=== PATIENT | male | born 1985 | race Caucasian/White ===

== ENCOUNTER 2017-01-31 13:01 | Emergency (ER) | payer OTHER ==
--- NOTE | 2017-01-31 13:32 | ED CLINICAL REPORT ---
Clinical Report - Physicians/Mid Levels [facility] [address] [place] [address] 01/31/2017 13:05 Patient: BRIONNA ROMO Time Seen: 13:13; initial patient contact. Arrived- By private vehicle. Historian- patient. HISTORY OF PRESENT ILLNESS Chief Complaint: EYE REDNESS and IRRITATION. This started about 2 days ago, involves the left eye and is characterized as mild. Eye discomfort, redness, irritation, discharge and matting. Eye itching. Photophobia. No blurred vision, double vision, decreased vision or loss of vision. REVIEW OF SYSTEMS No fever, sore throat or cough. All systems otherwise negative, except as recorded above. PAST HISTORY Dental Abscess. Dental Pain. Hydrocele [RuleOut]. Epididymitis [RuleOut]. ADDITIONAL SURGERIES: Hydrocilectomy Lt Side. Tonsillectomy. ADDITIONAL NOTES The nursing notes have been reviewed. PHYSICAL EXAM Vital Signs: 01/31/2017 13:11 BP: 134/91. HR: 104. RR: 17. O2 saturation: 100%. Temp: 98.2 F. Pain level now: 8/10. Have been reviewed. Hypertensive. Tachycardic. Respiratory rate normal. Temperature normal. Oxygen saturation normal. Appearance: Alert. Oriented X3. No acute distress. Eyes: Pupils equal, round and reactive to light. Accommodation normal. EOMs intact. Rt Eye: Right eye exam normal. Lt Eye: Injected conjunctiva. Moderate exudate present. No eyelid edema or erythema, subconjunctival hemorrhage or conjunctival foreign body. No injury to the conjunctiva or sclera. No stye present. No foreign body under the eyelid. No injury to the eyelids. Neck: No lymphadenopathy. Skin: No rash. Neuro: Oriented X 3. PROGRESS AND PROCEDURES Disposition: Discharged home in good and improved condition. Condition: good. CLINICAL IMPRESSION Acute mucopurulent and bacterial conjunctivitis of the left eye. INSTRUCTIONS Your Current Medications: CONTINUE TAKING THE FOLLOWING MEDICATIONS: None*. Prescription Medications: Polytrim ophthalmic solution: instill 1 drop into the affected eye every 3 hours while awake until symptoms resolve. Dispense ten (10) mL. No refill. Substitution is permissible. Follow-up: Follow up with your doctor if not better. Call for an appointment. Screening today revealed the patient's blood pressure to be in the hypertensive range. The patient should follow up with a primary care provider for blood pressure management. (Electronically signed by Yaakov Bailey Dr. 01/31/2017 13:35)
--- NOTE | 2017-01-31 13:32 | ED NURSING NOTES ---
Clinical Report - Nurses [facility] [address] [place] [address] 01/31/2017 13:05 Patient: BRIONNA ROMO TRIAGE Triage time 13:Jan 31 2017. Acuity: LEVEL 4. Chief Complaint: REDNESS and PAIN TO LEFT EYE. BURNING, MATTING and DRAINAGE TO LEFT EYE. (pt reports 3 days of left eye pain, redness and "it's been stuck shut 2 mornings in a row now"). Alert. No acute distress. --13:15 Quique Daniels R.N. 13:11 01/31/17. BP: 134/91. HR: 104. RR: 17. O2 saturation: 100%. Temp: 98.2 F. Pain level now: 04/22. --13:15 Quique Daniels R.N. Weight: 238.1 kg stated. Height/Length: 73 inches Per Patient. BMI: 69.3. --13:14 Quique Daniels R.N. Medications None. --13:13 Quique Daniels R.N. Medication/allergy information source: the patient. --13:15 Quique Daniels R.N. Allergies None. --13:13 Quique Daniels R.N. History Arrived by private vehicle. Historian: patient. The patient did not sustain an injury. 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 PAST MEDICAL HX: Immunizations: up-to-date. SOCIAL HX: Heavy tobacco smoker (cigarette)- less than 1 pack per day. No alcohol use or drug use. No infectious disease exposure. ABUSE ASSESSMENT: No report of abuse. SELF HARM ASSESSMENT: A self harm assessment was performed. The patient answered "no" to the question "Do you have thoughts of harming or killing yourself?". Bedside precautions. --13:15 Quique Daniels R.N. PROBLEMS: Dental Abscess. Dental Pain. --13:13 Quique Daniels R.N. Hydrocele [RuleOut]. Epididymitis [RuleOut]. --13:13 Quique Daniels R.N. ADDITIONAL SURGERIES: Hydrocilectomy Lt Side. Tonsillectomy. --13:13 Quique Daniels R.N. Interventions ID band on patient. --13:15 Quique Daniels R.N. PHYSICAL ASSESSMENT Ambulatory to room. GENERAL / NEURO / PSYCH: Alert. Appears in pain. HEENT: No facial asymmetry noted. Pupils equal, round and reactive to light. Conjunctival findings present: redness of the left conjunctiva and exudate present in the left eye. RESPIRATORY: Respirations not labored. CVS: Capillary refill less than 2 seconds. SKIN: Skin is warm and dry. Normal skin turgor. --13:16 Quique Daniels R.N. NURSING PROGRESS NOTES Reassurance given. Patient identifiers checked. Call light placed in reach. Side rails up x 1. Bed placed in lowest position. Brakes of bed on. Patient waiting for evaluation. --13:16 Quique Daniels R.N. DISPOSITION / DISCHARGE Departure time: 1343. Condition at departure: unchanged. No learning barriers present. Discharge instructions provided and reviewed with the patient. Reviewed medication(s) precautions, dosing and course information. Prescription(s) given to the patient. Patient verbalized understanding. Written instructions provided in [place]. The patient was discharged by the physician. He was discharged home. He left the Emergency Department ambulatory and via private vehicle. Patient driving. ( pt enc to maintain excellent handwashing and to how contagious conjunctivitis is, as well as how it is transferred.). --13:46 Quique Daniels R.N. 13:44 01/31/17. BP: 128/92. HR: 102. RR: 17. O2 saturation: 97%. Temp: 98.1 F. Pain level now: 10. --13:46 Quique Daniels R.N. Locked/Released at 01/31/2017 13:50 by Quique Daniels R.N.
--- NOTE | 2017-01-31 13:32 | ED NURSING NOTES ---
Clinical Report - Nurses [facility] [address] [place] [address] 01/31/2017 13:05 Patient: BRIONNA ROMO TRIAGE Triage time 13:Jan 31 2017. Acuity: LEVEL 4. Chief Complaint: REDNESS and PAIN TO LEFT EYE. BURNING, MATTING and DRAINAGE TO LEFT EYE. (pt reports 3 days of left eye pain, redness and "it's been stuck shut 2 mornings in a row now"). Alert. No acute distress. --13:15 Quique Daniels R.N. 13:11 01/31/17. BP: 134/91. HR: 104. RR: 17. O2 saturation: 100%. Temp: 98.2 F. Pain level now: 04/22. --13:15 Quique Daniels R.N. Weight: 238.1 kg stated. Height/Length: 73 inches Per Patient. BMI: 69.3. --13:14 Quique Daniels R.N. Medications None. --13:13 Quique Daniels R.N. Medication/allergy information source: the patient. --13:15 Quique Daniels R.N. Allergies None. --13:13 Quique Daniels R.N. History Arrived by private vehicle. Historian: patient. The patient did not sustain an injury. 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 PAST MEDICAL HX: Immunizations: up-to-date. SOCIAL HX: Heavy tobacco smoker (cigarette)- less than 1 pack per day. No alcohol use or drug use. No infectious disease exposure. ABUSE ASSESSMENT: No report of abuse. SELF HARM ASSESSMENT: A self harm assessment was performed. The patient answered "no" to the question "Do you have thoughts of harming or killing yourself?". Bedside precautions. --13:15 Quique Daniels R.N. PROBLEMS: Dental Abscess. Dental Pain. --13:13 Quique Daniels R.N. Hydrocele [RuleOut]. Epididymitis [RuleOut]. --13:13 Quique Daniels R.N. ADDITIONAL SURGERIES: Hydrocilectomy Lt Side. Tonsillectomy. --13:13 Quique Daniels R.N. Interventions ID band on patient. --13:15 Quique Daniels R.N. PHYSICAL ASSESSMENT Ambulatory to room. GENERAL / NEURO / PSYCH: Alert. Appears in pain. HEENT: No facial asymmetry noted. Pupils equal, round and reactive to light. Conjunctival findings present: redness of the left conjunctiva and exudate present in the left eye. RESPIRATORY: Respirations not labored. CVS: Capillary refill less than 2 seconds. SKIN: Skin is warm and dry. Normal skin turgor. --13:16 Quique Daniels R.N. NURSING PROGRESS NOTES Reassurance given. Patient identifiers checked. Call light placed in reach. Side rails up x 1. Bed placed in lowest position. Brakes of bed on. Patient waiting for evaluation. --13:16 Quique Daniels R.N. DISPOSITION / DISCHARGE Departure time: 1343. Condition at departure: unchanged. No learning barriers present. Discharge instructions provided and reviewed with the patient. Reviewed medication(s) precautions, dosing and course information. Prescription(s) given to the patient. Patient verbalized understanding. Written instructions provided in [place]. The patient was discharged by the physician. He was discharged home. He left the Emergency Department ambulatory and via private vehicle. Patient driving. ( pt enc to maintain excellent handwashing and to how contagious conjunctivitis is, as well as how it is transferred.). --13:46 Quique Daniels R.N. 13:44 01/31/17. BP: 128/92. HR: 102. RR: 17. O2 saturation: 97%. Temp: 98.1 F. Pain level now: 10. --13:46 Quique Daniels R.N. Locked/Released at 01/31/2017 13:50 by Quique Daniels R.N.
--- NOTE | 2017-01-31 13:32 | ED CLINICAL REPORT ---
Clinical Report - Physicians/Mid Levels [facility] [address] [place] [address] 01/31/2017 13:05 Patient: BRIONNA ROMO Time Seen: 13:13; initial patient contact. Arrived- By private vehicle. Historian- patient. HISTORY OF PRESENT ILLNESS Chief Complaint: EYE REDNESS and IRRITATION. This started about 2 days ago, involves the left eye and is characterized as mild. Eye discomfort, redness, irritation, discharge and matting. Eye itching. Photophobia. No blurred vision, double vision, decreased vision or loss of vision. REVIEW OF SYSTEMS No fever, sore throat or cough. All systems otherwise negative, except as recorded above. PAST HISTORY Dental Abscess. Dental Pain. Hydrocele [RuleOut]. Epididymitis [RuleOut]. ADDITIONAL SURGERIES: Hydrocilectomy Lt Side. Tonsillectomy. ADDITIONAL NOTES The nursing notes have been reviewed. PHYSICAL EXAM Vital Signs: 01/31/2017 13:11 BP: 134/91. HR: 104. RR: 17. O2 saturation: 100%. Temp: 98.2 F. Pain level now: 8/10. Have been reviewed. Hypertensive. Tachycardic. Respiratory rate normal. Temperature normal. Oxygen saturation normal. Appearance: Alert. Oriented X3. No acute distress. Eyes: Pupils equal, round and reactive to light. Accommodation normal. EOMs intact. Rt Eye: Right eye exam normal. Lt Eye: Injected conjunctiva. Moderate exudate present. No eyelid edema or erythema, subconjunctival hemorrhage or conjunctival foreign body. No injury to the conjunctiva or sclera. No stye present. No foreign body under the eyelid. No injury to the eyelids. Neck: No lymphadenopathy. Skin: No rash. Neuro: Oriented X 3. PROGRESS AND PROCEDURES Disposition: Discharged home in good and improved condition. Condition: good. CLINICAL IMPRESSION Acute mucopurulent and bacterial conjunctivitis of the left eye. INSTRUCTIONS Your Current Medications: CONTINUE TAKING THE FOLLOWING MEDICATIONS: None*. Prescription Medications: Polytrim ophthalmic solution: instill 1 drop into the affected eye every 3 hours while awake until symptoms resolve. Dispense ten (10) mL. No refill. Substitution is permissible. Follow-up: Follow up with your doctor if not better. Call for an appointment. Screening today revealed the patient's blood pressure to be in the hypertensive range. The patient should follow up with a primary care provider for blood pressure management. (Electronically signed by Yaakov Bailey Dr. 01/31/2017 13:35)
--- NOTE | 2017-01-31 13:50 | ED MAR SUMMARY ---
..... Medication Administration Record [facility] [address] [place], [place] [id number] Patient: BRIONNA ROMO Visit ID: [id number] 31y, M Weight: 238.1 kg Height/Length: 73 in BMI: 69.3 ALLERGIES: None
--- NOTE | 2017-01-31 13:50 | ED MED RECONCILIATION SUMMARY ---
Patient: BRIONNA ROMO Medication Reconciliation Report [facility] VisitID: [id number] [address] [place] [address] 31y, M Registration Date/Time: 01/31/2017 Weight: 238.1 kg Height/Length: 73 in. BMI: 69.3 ALLERGIES: None The patient's Home Medications are listed below: NONE. The source(s) of the original Home Medication information: patient The following Medications were given to the patient in the Emergency Department: None. The following Medications were prescribed to the patient: Polytrim ophthalmic solution: instill 1 drop into the affected eye every 3 hours while awake until symptoms resolve. Dispense ten (10) mL. No refill. Substitution is permissible. -- Yaakov Bailey Dr.
--- NOTE | 2017-01-31 13:50 | ED DISCHARGE INSTRUCTIONS ---
Patient: BRIONNA ROMO General Instructions [facility] VisitID: [id number] [place] [address] 31y, M Registration Date/Time: 01/31/2017 INSTRUCTIONS Your Current Medications: CONTINUE TAKING THE FOLLOWING MEDICATIONS: None*. Prescription Medications: Polytrim ophthalmic solution: instill 1 drop into the affected eye every 3 hours while awake until symptoms resolve. Dispense ten (10) mL. No refill. Substitution is permissible. Follow-up: Follow up with your doctor if not better. Call for an appointment. Screening today revealed the patient's blood pressure to be in the hypertensive range. The patient should follow up with a primary care provider for blood pressure management. ADDITIONAL INFORMATION Conjunctivitis, Bacterial You have a bacterial infection in the membranes covering the eye. The most common symptoms include a thick discharge from the eye, swollen eyelids, redness, eyelids sticking together upon awakening, and a gritty or scratchy feeling in the eye. The infection takes about 7-10 days to resolve with treatment. Home Care: Use prescribed eyedrops or ointment as directed to treat the infection. Apply a warm pack (towel soaked in warm water) to the affected eye 3-4 times a day. Do this just before applying medicine to the eye. Use a warm, wet cloth to wipe away crusting of the eyelids in the morning. This is caused by mucus drainage during the night. You may also use saline irrigating solution or artificial tears to rinse away mucus inside the eye. Do not put a patch over the eye. Wash your hands before and after touching the infected eye. This is to prevent spreading the infection to the other eye, and to other people. Do not share your towels or washcloths with others. You may use acetaminophen (Tylenol) or ibuprofen (Motrin, Advil) to control pain, unless another medicine was prescribed. [NOTE: If you have chronic liver or kidney disease or ever had a stomach ulcer or GI bleeding, talk with your doctor before using these medicines.] Do not wear contact lenses until your eyes have healed and all symptoms are gone. Follow Up with your doctor or this facility as directed, or if there has not been improvement within 5 days. Get Prompt Medical Attention if any of the following occur: Worsening vision Increasing pain in the eye Increasing swelling or redness of the eyelid Redness spreading around the eye Trimethoprim Sulfate, Polymyxin B Sulfate Eye drops, solution What is this medicine? POLYMYXIN B and TRIMETHOPRIM (javier i MIX in B and trye METH oh prim) eye drops treat certain eye infections caused by bacteria. How should I use this medicine? This medicine is used in the eye. Follow the directions on the prescription label. Wash your hands before and after use. Tilt your head back slightly. Pull your lower eyelid down gently to form a pouch. Do not touch the tip of the dropper to your eye, fingertips, or other surface. Squeeze the prescribed number of drops into the pouch. Close the eye gently to spread the drops. Use your medicine at regular intervals. Do not take your medicine more often than directed. Use all of your medicine as directed even if you think your are better. Do not skip doses or stop your medicine early. Talk to your hypoid gear generator regarding the use of this medicine in children. While this drug may be prescribed for children and infants for selected conditions, precautions do apply. What side effects may I notice from receiving this medicine? Side effects that you should report to your doctor or health post acute care registered nurse as soon as possible: burning, stinging, or swelling change in vision or blurred vision that will not go away eye pain itching and redness rash Side effects that usually do not require medical attention (report to your doctor or health post acute care registered nurse if they continue or are bothersome): temporary blurred vision after applying temporary watering or stinging What may interact with this medicine? Interactions are not expected. Do not use any other eye products without advice of your doctor or health post acute care registered nurse. What if I miss a dose? If you miss a dose, use it as soon as you can. If it is almost time for your next dose, use only that dose. Do not use double or extra doses. Where should I keep my medicine? Keep out of the reach of children. Store at room temperature 15 to 25 degrees C (59 to 77 degrees F). Protect from light. To prevent the spread of infection, it is best to throw away any unused eye drops after you finish the course of treatment. Throw away any unused medicine after the expiration date. What should I tell my health care provider before I take this medicine? They need to know if you have any of these conditions: wear contact lenses an unusual or allergic reaction to polymyxin B, trimethoprim, other medicines, foods, dyes, or preservatives or trying to get breast-feeding What should I watch for while using this medicine? Check with your doctor or health post acute care registered nurse if your condition does not get better after 5 days, or if it gets worse. If you wear contact lenses, ask when you can use your lenses again. A burning or stinging reaction that does not go away may mean you are allergic to this product. Stop use and call your doctor or health post acute care registered nurse. To prevent the spread of infection, do not share eye products or other personal items with anyone else. You have been given the following additional information: Conjunctivitis, Bacterial Trimethoprim Sulfate, Polymyxin B Sulfate Eye drops, solution (Electronically signed by Yaakov Bailey Dr. 01/31/2017 13:35)
--- NOTE | 2017-01-31 13:50 | ED MAR SUMMARY ---
..... Medication Administration Record [facility] [address] [place], [place] [id number] Patient: BRIONNA ROMO Visit ID: [id number] 31y, M Weight: 238.1 kg Height/Length: 73 in BMI: 69.3 ALLERGIES: None
--- NOTE | 2017-01-31 13:50 | ED MED RECONCILIATION SUMMARY ---
Patient: BRIONNA ROMO Medication Reconciliation Report [facility] VisitID: [id number] [address] [place] [address] 31y, M Registration Date/Time: 01/31/2017 Weight: 238.1 kg Height/Length: 73 in. BMI: 69.3 ALLERGIES: None The patient's Home Medications are listed below: NONE. The source(s) of the original Home Medication information: patient The following Medications were given to the patient in the Emergency Department: None. The following Medications were prescribed to the patient: Polytrim ophthalmic solution: instill 1 drop into the affected eye every 3 hours while awake until symptoms resolve. Dispense ten (10) mL. No refill. Substitution is permissible. -- Yaakov Bailey Dr.
--- NOTE | 2017-01-31 13:50 | ED DISCHARGE INSTRUCTIONS ---
Patient: BRIONNA ROMO General Instructions [facility] VisitID: [id number] [place] [address] 31y, M Registration Date/Time: 01/31/2017 INSTRUCTIONS Your Current Medications: CONTINUE TAKING THE FOLLOWING MEDICATIONS: None*. Prescription Medications: Polytrim ophthalmic solution: instill 1 drop into the affected eye every 3 hours while awake until symptoms resolve. Dispense ten (10) mL. No refill. Substitution is permissible. Follow-up: Follow up with your doctor if not better. Call for an appointment. Screening today revealed the patient's blood pressure to be in the hypertensive range. The patient should follow up with a primary care provider for blood pressure management. ADDITIONAL INFORMATION Conjunctivitis, Bacterial You have a bacterial infection in the membranes covering the eye. The most common symptoms include a thick discharge from the eye, swollen eyelids, redness, eyelids sticking together upon awakening, and a gritty or scratchy feeling in the eye. The infection takes about 7-10 days to resolve with treatment. Home Care: Use prescribed eyedrops or ointment as directed to treat the infection. Apply a warm pack (towel soaked in warm water) to the affected eye 3-4 times a day. Do this just before applying medicine to the eye. Use a warm, wet cloth to wipe away crusting of the eyelids in the morning. This is caused by mucus drainage during the night. You may also use saline irrigating solution or artificial tears to rinse away mucus inside the eye. Do not put a patch over the eye. Wash your hands before and after touching the infected eye. This is to prevent spreading the infection to the other eye, and to other people. Do not share your towels or washcloths with others. You may use acetaminophen (Tylenol) or ibuprofen (Motrin, Advil) to control pain, unless another medicine was prescribed. [NOTE: If you have chronic liver or kidney disease or ever had a stomach ulcer or GI bleeding, talk with your doctor before using these medicines.] Do not wear contact lenses until your eyes have healed and all symptoms are gone. Follow Up with your doctor or this facility as directed, or if there has not been improvement within 5 days. Get Prompt Medical Attention if any of the following occur: Worsening vision Increasing pain in the eye Increasing swelling or redness of the eyelid Redness spreading around the eye Trimethoprim Sulfate, Polymyxin B Sulfate Eye drops, solution What is this medicine? POLYMYXIN B and TRIMETHOPRIM (javier i MIX in B and trye METH oh prim) eye drops treat certain eye infections caused by bacteria. How should I use this medicine? This medicine is used in the eye. Follow the directions on the prescription label. Wash your hands before and after use. Tilt your head back slightly. Pull your lower eyelid down gently to form a pouch. Do not touch the tip of the dropper to your eye, fingertips, or other surface. Squeeze the prescribed number of drops into the pouch. Close the eye gently to spread the drops. Use your medicine at regular intervals. Do not take your medicine more often than directed. Use all of your medicine as directed even if you think your are better. Do not skip doses or stop your medicine early. Talk to your wire stitcher operator regarding the use of this medicine in children. While this drug may be prescribed for children and infants for selected conditions, precautions do apply. What side effects may I notice from receiving this medicine? Side effects that you should report to your doctor or health emergency care attendant as soon as possible: burning, stinging, or swelling change in vision or blurred vision that will not go away eye pain itching and redness rash Side effects that usually do not require medical attention (report to your doctor or health emergency care attendant if they continue or are bothersome): temporary blurred vision after applying temporary watering or stinging What may interact with this medicine? Interactions are not expected. Do not use any other eye products without advice of your doctor or health emergency care attendant. What if I miss a dose? If you miss a dose, use it as soon as you can. If it is almost time for your next dose, use only that dose. Do not use double or extra doses. Where should I keep my medicine? Keep out of the reach of children. Store at room temperature 15 to 25 degrees C (59 to 77 degrees F). Protect from light. To prevent the spread of infection, it is best to throw away any unused eye drops after you finish the course of treatment. Throw away any unused medicine after the expiration date. What should I tell my health care provider before I take this medicine? They need to know if you have any of these conditions: wear contact lenses an unusual or allergic reaction to polymyxin B, trimethoprim, other medicines, foods, dyes, or preservatives or trying to get breast-feeding What should I watch for while using this medicine? Check with your doctor or health emergency care attendant if your condition does not get better after 5 days, or if it gets worse. If you wear contact lenses, ask when you can use your lenses again. A burning or stinging reaction that does not go away may mean you are allergic to this product. Stop use and call your doctor or health emergency care attendant. To prevent the spread of infection, do not share eye products or other personal items with anyone else. You have been given the following additional information: Conjunctivitis, Bacterial Trimethoprim Sulfate, Polymyxin B Sulfate Eye drops, solution (Electronically signed by Yaakov Bailey Dr. 01/31/2017 13:35)
== END 2017-01-31 13:43 | disposition home or self-care (01) ==
LOC: ED SRH 13:01
DX: H10.022 Other mucopurulent conjunctivitis, left eye (principal); F17.210 Nicotine dependence, cigarettes, uncomplicated